=== PATIENT | male | born 1955 | race Caucasian/White ===

== ENCOUNTER 2016-08-18 12:48 | Emergency (ER) | payer OTHER ==
[~2016-08-18] VITALS: Ht 180.3 cm; Wt 102.1 kg
--- NOTE | 2016-08-18 13:31 | ED INFLUENZA/URI COMPLAINT ---
History of Present Illness General Chief Complaint: General Adult Stated Complaint: COUGH AND EAR PAIN Source: patient, family Exam Limitations: no limitations Vital Signs & Intake/Output Vital Signs & Intake/Output Vital Signs Date Time Temp Pulse Resp B/P Pulse O2 O2 Flow FiO2 Ox Delivery Rate 08/18 1444 170/90 04 1310 96 08/18 1255 97.6 85 20 190/103 97 Room Air Allergies Coded Allergies: atorvastatin (From LIPITOR) (RASH 08/18/16) Reconcile Medications Albuterol Sulfate (Proventil Hfa) 90 MCG HFA.AER.AD 2 PUF INH Q4 COUGH Doxycycline Hyclate 100 MG TABLET 1 TAB PO BID BRONCHITIS Lisinopril 10 MG TABLET 1 TAB PO DAILY HEART (Reported) Prednisone (Deltasone) 20 MG TABLET 1 TAB PO DAILY BRONCHITIS Simvastatin (Simvastatin*) 20 MG TABLET 1 TAB PO DAILY CHOLESTEROL (Reported) Triage Note: PT C/O PRODUCTIVE COUGH, BILATERAL EAR PAIN. STATES THE COUGH HAS BEEN FOR OVER A MONTH AND IT WON'T GO AWAY Triage Nurses Notes Reviewed? yes Onset: Abrupt Duration: week(s):, intermittent Timing: recent history Severity: moderate, severe No Modifying Factors: none HPI: 60-year-old male comes into emergency room with intermittent respiratory symptoms of been going on for most the month. Patient reports a sick about 3 weeks ago with coughing fever chills body aches. He got better and then got sick again. Patient just came back from [place]. He was there for 1 week. He reports she's had this persistent cough with a cement like mucus production and she describes it. He also describes of bilateral ear pain and pressure. Denies any current fevers. Denies any vomiting. No sick contacts. Denies any other associated symptoms. (IESHA SKAGGS) Past History Travel History Traveled to [place] past 21 day No Medical History Any Pertinent Medical History? see below for history Cardiovascular: hypertension, hyperlipidemia Surgical History Surgical History: non-contributory Psychosocial History What is your primary language Welsh Tobacco Use: Never used ETOH Use: occasional use Illicit Drug Use: denies illicit drug use Family History Hx Contributory? No (IESHA SKAGGS) Review of Systems Review of Systems Constitutional: Reports: see HPI. EENTM: Reports: see HPI. Respiratory: Reports: see HPI. Cardiovascular: Reports: no symptoms. GI: Reports: no symptoms. Genitourinary: Reports: no symptoms. Musculoskeletal: Reports: no symptoms. Skin: Reports: no symptoms. Neurological/Psychological: Reports: no symptoms. Hematologic/Endocrine: Reports: no symptoms. Immunologic/Allergic: Reports: no symptoms. All Other Systems: Reviewed and Negative (IESHA SKAGGS) Physical Exam Physical Exam General Appearance: well developed/nourished, no apparent distress, alert Head: atraumatic, normal appearance Eyes: Bilateral: normal appearance, EOMI. Ears, Nose, Throat: normal ENT inspection, moist mucous membrane, Tympanic dull (bilaterally) Neck: normal inspection, full range of motion Respiratory: normal breath sounds, no respiratory distress Cardiovascular: regular rate/rhythm Back: normal range of motion Extremities: normal inspection Neurologic/Psych: awake, alert, oriented x 3, normal gait, normal mood/affect Skin: intact, normal color Core Measures Severe Sepsis Present: No Septic Shock Present: No (IESHA SKAGGS) Progress Differential Diagnosis: influenza, meningitis, neutropenia, otitis, pneumonia, pharyngitis, sinusitis, bronchitis Plan of Care: Orders Procedure Date/time Status COMPREHENSIVE METABOLIC PANEL 08/18 1330 Complete CBC WITHOUT DIFFERENTIAL 08/18 1330 Complete Laboratory Tests 08/18/16 1347: Anion Gap 10, Estimated GFR > 60, BUN/Creatinine Ratio 24.3, Glucose 142 H, Calcium 9.6, Total Bilirubin 0.9, AST 34, ALT 49, Alkaline Phosphatase 90, Total Protein 7.4, Albumin 4.5, Globulin 2.9, Albumin/Globulin Ratio 1.6, CBC w Diff NO MAN DIFF REQ, RBC 5.01, MCV 90.6, MCH 31.1 H, RDW 12.6, MPV 7.5, Gran % 60.9 , Lymphocytes % 24.4, Monocytes % 9.9 H, Eosinophils % 3.7, Basophils % 1.1, Absolute Granulocytes 4.8, Absolute Lymphocytes 1.9, Absolute Monocytes 0.8 H, Absolute Eosinophils 0.3, Absolute Basophils 0.1, PUBS MCHC 34.4 Diagnostic Imaging: Viewed by Me: Radiology Read. Discussed w/RAD: Radiology Read. Initial ED EKG: none Comments: SERVICE DATE: 08/18/16-1256 EXAM TYPE: RAD - XRY-CHEST XRAY, PA AND LATERAL EXAMINATION: XR CHEST CLINICAL INFORMATION: 60-year-old man with productive cough. COMPARISON: None TECHNIQUE: 2 views of the chest were obtained. FINDINGS: The lungs are fairly well expanded and clear, without evidence of focal airspace consolidation or overt pulmonary edema. Heart size is within the range of normal. There are no pleural effusions. Chronic appearing deformity of the right posterolateral third rib is noted. IMPRESSION: No convincing radiographic evidence of an acute cardiopulmonary process. DICTATED BY: WILSON CHAVIRA MD DATE/TIME DICTATED:08/18/161346 MEDICAL CUSTOMER SERVICE REPRESENTATIVE:ANDERSON DATE/TIME TRANSCRIBED:08/18/161346 (HALEY AMBROCIO,IESHA) Departure Departure Disposition: HOME OR SELF CARE Condition: Stable Clinical Impression Primary Impression: Bronchitis Referrals: Em NUNEZ MD (PCP/Family) Additional Instructions: Take doxycycline, prednisone, and albuterol as prescribed. Follow-up with your primary care doctor. Return if any concerns worsening symptoms. Please go over all results of today's visit with your primary care doctor. Contact your primary care doctor to let them know you were here in the emergency room. There may be nonspecific findings which may not be related to your visit today here in the emergency room but may require further evaluation and chronic monitoring by your primary care doctor. If you had a laceration today the chance of foreign body always remains. You should follow-up with your primary care doctor for recheck in 3-5 days for a wound check. If you had an x-ray done there is a chance that a fracture could have been missed on initial read and you should follow-up with your primary care doctor for repeat x-rays if symptoms persist. If your blood pressure was elevated here in the emergency room please have rechecked by her primary care doctor within the next 48 hours by your primary care doctor. If you were prescribed a narcotic here in the emergency room or any type of controlled substances you're not allowed to drive while taking this medication or operate any type of heavy machinery. Narcotics can make you feel lightheaded dizziness nausea and can cause constipation. You may need to picker machine operator a stool softener. Thank you for choosing [facility] emergency room. Please return to the emergency room immediately if you have any other concerns worsening of symptoms. Departure Forms: Customer Survey General Discharge Information Prescriptions: Current Visit Scripts Doxycycline Hyclate 1 TAB PO BID #20 TAB Prednisone (Deltasone) 1 TAB PO DAILY #5 MG Albuterol Sulfate (Proventil Hfa) 2 PUF INH Q4 #1 INHAL Comments 08/18/2016 2:50:36 PM Patient clinically looks well. Patient is nontoxic-appearing. Patient is in no apparent distress. Symptoms are most consistent with viral illness likely bronchitis. No signs of pneumonia. Due to persistent symptoms of 3 weeks' patient tried on a short course of antibiotics. Patient understands and agrees with plan of care. Blood pressure slightly elevated blood patient has also been taking Mucinex. Patient told to have recheck by his primary care doctor. No cardiac symptoms. Understands and agrees with plan of care. (HALEY AMBROCIO,IESHA) PA/PR SPECIALIST Co-Sign Statement Statement: ED Attending supervision documentation- x I saw and evaluated the patient. I have also reviewed all the pertinent lab results and diagnostic results. I agree with the findings and the plan of care as documented in the PA's/PR SPECIALIST's documentation. [] I have reviewed the ED Record and agree with the PA's/PR SPECIALIST's documentation. [] Additions or exceptions (if any) to the PAs/PR SPECIALIST's note and plan are summarized below: [] (MINERVA VASQUEZ,GEOVANY)
--- NOTE | 2016-08-18 13:51 | RADIOLOGY REPORT ---
EXAMINATION: XR CHEST CLINICAL INFORMATION: 60-year-old man with productive cough. COMPARISON: None TECHNIQUE: 2 views of the chest were obtained. FINDINGS: The lungs are fairly well expanded and clear, without evidence of focal airspace consolidation or overt pulmonary edema. Heart size is within the range of normal. There are no pleural effusions. Chronic appearing deformity of the right posterolateral third rib is noted. IMPRESSION: No convincing radiographic evidence of an acute cardiopulmonary process.
[2016-08-18] MEDS ORDERED: SIMVASTATIN20 M2 PO (13:53)
[2016-08-18] MEDS ORDERED: LISINOPRIL10 M1 PO (13:53)
[2016-08-18 14:03] LABS: ABSOLUTE BASOPHIL COUNT 0.1 /CUMM (0.0-0.2); ABSOLUTE EOSINOPHIL COUNT 0.3 /CUMM (0.0-0.7); ABSOLUTE GRANULOCYTE CT 4.8 /CUMM (1.4-6.5); ABSOLUTE LYMPH COUNT 1.9 /CUMM (1.2-3.4); ABSOLUTE MONOCYTE COUNT 0.8 /CUMM (0.10-0.60); BASOPHIL % 1.1 % (0.0-2.0); EOSINOPHIL % 3.7 % (0-5); GRANULOCYTE % 60.9 % (42.2-75.2); HEMATOCRIT 45.4 % (42-52); MEAN CORPUSCULAR HGB 31.1 PG (27.0-31.0); MEAN CORPUSCULAR HGB CONC 34.4 G/DL (33.0-37.0); MEAN CORPUSCULAR VOLUME 90.6 FL (80.0-94.0); MEAN PLATELET VOLUME 7.5 FL (7.4-10.4); PLATELET COUNT 283 /CUMM (130-400); RBC DISTRIBUTION WIDTH 12.6 % (11.5-14.5); RED BLOOD CELL CT 5.01 /CUMM (4.70-6.10); WHITE BLOOD CELL COUNT 7.9 /CUMM (4.8-10.8)
[2016-08-18] MEDS ORDERED: PROVENTIL HFA6.7 GM INH (14:41)
[2016-08-18] MEDS ORDERED: DOXYCYCLINE HY100 M4 PO (14:41)
[2016-08-18] MEDS ORDERED: DELTASONE20 MG PO (14:41)
[2016-08-18 14:44] VITALS: BP 170/90
== END 2016-08-18 14:47 ==
LOC: ERH 12:48
PROVIDERS: Physician Assistant Medical
DX: J40 Bronchitis, not specified as acute or chronic (principal)